=== PATIENT | female | born 1975 | race African-American/Black ===

== ENCOUNTER 2019-06-20 14:04 | Emergency (ER) | payer OTHER, SELFPAY ==
[~2019-06-20] VITALS: Ht 165.1 cm; Wt 90.7 kg
[2019-06-20 14:20] VITALS: BP 129/73
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
[2019-06-20 14:33] VITALS: BP 129/73
[2019-06-20 15:04] VITALS: BP 121/77
== END 2019-06-20 14:55 | disposition home or self-care (01) ==
LOC: ER 14:04
DX: S16.1XXA Strain of muscle, fascia and tendon at neck level, initial encounter (principal); V89.2XXA Person injured in unspecified motor-vehicle accident, traffic, initial encounter; Y93.89 Activity, other specified; Y92.410 Unspecified street and highway as the place of occurrence of the external cause; Y99.8 Other external cause status
CPT/HCPCS: 99283